=== PATIENT | male | born 1955 | race Hispanic/Latino ===

== ENCOUNTER 2020-10-13 16:50 | Inpatient (IN) | payer MEDICAID ==
--- NOTE | 2020-10-13 17:18 | Consultation ---
History of Present Illness - Reason for Consult Consult date: 10/06/20 - History of Present Illness [facility] Consult Note # Demographics Consult Type: Acute Stroke Level 2 (4.5-24 hrs) Patient Location: Emergency Room First Name: Keith Last Name: Mariana Date of : 1955 Age: 65 Gender: Male Time of Initial Page (): 10/13/2020, 16:57 Time of Return Call (): 10/13/2020, 16:57 # HPI History: 65yo man who was LKN at 9PM last night. He has right sided weakness as well as speech issue complaints. He had some numbness also last night, but today, he has more weakness than anything. # Scores Time of exam and NIHSS (): 10/13/2020, 17:16 Level of Consciousness 1a: [0] = Alert; keenly responsive LOC Questions 1b: [0] = Answers both questions correctly LOC Commands 1c: [0] = Performs both tasks correctly Best Gaze 2: [0] = Normal Visual 3: [0] = No visual loss Facial Palsy 4: [1] = Minor paralysis Motor Arm Left 5a: [0] = No drift Motor Arm Right 5b: [4] = No movement Motor Leg Left 6a: [0] = No drift Motor Leg Right 6b: [0] = No drift Limb Ataxia 7: [0] = Absent Sensory 8: [0] = Normal Best Language 9: [0] = No aphasia Dysarthria 10: [1] = [id number] dysarthria Extinction and Inattention 11: [0] = No abnormality NIHSS Total: 6 # ROS Pulmonary: shortness of breath Cardiovascular: no chest pain # Data Time Head CT personally read by me (): 10/13/2020, 17:[address]: no bleed, riight thalamic subacute appearing stroke # Assessment Impression: Ischemic Stroke (Acute) # Plan Thrombolytic/Intervention: NOT IV Thrombolytic or IA Intervention Thrombolytic Exclusion: > 4.5 hours Intraarterial Exclusion: clinically consistent with small vessel disease Target Blood Pressure: SBP < 220 Labs: ESR, lipid panel Imaging: (urgency: STAT in ED): CT Angiogram Head and CT Angiogram Neck Imaging: (urgency: routine admission): MRI Brain without contrast Diagnostic Test: echo with bubble study Therapy/Evaluation: NPO until swallow evaluation, PT/OT evaluation, speech/swallow consultation Medication: aspirin 81 mg daily DVT Prophylaxis: SCD, chemical DVT prophylaxis Other: permissive hypertension, telemetry monitoring, I have discussed my recommendations with the referring provider Disposition: admit Medications and Allergies Allergies Allergy/AdvReac Type Severity Reaction Status Date / Time No Known Allergies Allergy Verified 12/11/13 08:57 Home Medications Medication Instructions Recorded Confirmed Last Taken Type ALPRAZolam [Xanax] 1 mg PO DAILY 09/19/13 09/19/13 09/18/13 History Tiotropium [place] [Spiriva] 1 cap IH DAILY 09/19/13 09/19/13 09/18/13 History Vardenafil HCl [Levitra] 20 mg PO QDAY PRN 09/19/13 09/19/13 08/28/13 History risperiDONE [RisperDAL] 0.25 mg PO BID 09/19/13 09/19/13 09/18/13 History Albuterol Sulfate [Ventolin HFA] 2 puff IH Q4H PRN #1 hfa.aer.ad 12/11/13 Unknown Rx Azithromycin [Zithromax Z-DIANA] 250 mg PO DAILY #6 tablet 12/11/13 Unknown Rx Prednisone [Prednisone 10 mg 10 mg PO .TAPER #1 tab.ds.pk 12/11/13 Unknown Rx (6-Day Pack, 21 Tabs)] traMADoL [Ultram 50 MG tab] 50 mg PO Q6HR PRN #20 tablet 12/11/13 Unknown Rx
[2020-10-13 17:26] LABS: Basophils % (Auto) 0.6 % (0.0-1.8); Eosinophils # (Auto) 0.1 K/mm3 (0.0-0.4); Eosinophils % (Auto) 1.7 % (0.0-4.3); Hematocrit 41.2 % (35.5-45.6); Hemoglobin 13.9 gm/dl (11.8-15.2); Lymphocytes % (Auto) 16.4 % (13.4-35.0); Mean Corpuscular HGB Conc 34 % (32-34); Mean Corpuscular Volume 91 fl (84-94); Monocytes # (Auto) 0.5 K/mm3 (0.0-0.8); Monocytes % (Auto) 8.5 % (0.0-7.3); Platelet Count 201 K/mm3 (140-440); Red Blood Count 4.54 M/mm3 (3.65-5.03); Red Cell Distribution Width 14.7 % (13.2-15.2)
--- NOTE | 2020-10-13 17:28 | Emergency Department Report ---
ED Neuro Deficit HPI - General Stated Complaint: POSSIBLE STROKE Time Seen by Provider: 10/13/20 16:51 Source: patient, EMS Limitations: No Limitations - History of Present Illness Initial Comments: 65-year-old male, history of COPD, mesothelioma, presents to ED with stroke symptoms. Last known well time was 9 PM. Patient has numbness and weakness in the right arm and leg. He reports mild headache and some slurred speech. Patient reports tobacco use. Has not received his COVID-19 vaccine yet. -: Last night Last Observed Normal: 21:00 Location: speech, right arm, right leg Presenting Symptoms: Present: Weak/Paralyzed One Side, Unable to Speak Clearly Place: home Severity: moderate Quality: weak, tingling Improves With: none Worsens With: none On Anticoagulants: No Associated Symptoms: headaches, shortness of breath. denies: chest pain, fever/chills, nausea/vomiting - Related Data Home Medications: Home Medications Medication Instructions Recorded Confirmed Last Taken ALPRAZolam [Xanax] 1 mg PO DAILY 09/19/13 09/19/13 09/18/13 Tiotropium [place] [Spiriva] 1 cap IH DAILY 09/19/13 09/19/13 09/18/13 Vardenafil HCl [Levitra] 20 mg PO QDAY PRN 09/19/13 09/19/13 08/28/13 risperiDONE [RisperDAL] 0.25 mg PO BID 09/19/13 09/19/13 09/18/13 Previous Rx's Medication Instructions Recorded Last Taken Type Albuterol Sulfate [Ventolin HFA] 2 puff IH Q4H PRN #1 hfa.aer.ad 12/11/13 Unknown Rx Azithromycin [Zithromax Z-DIANA] 250 mg PO DAILY #6 tablet 12/11/13 Unknown Rx Prednisone [Prednisone 10 mg 10 mg PO .TAPER #1 tab.ds.pk 12/11/13 Unknown Rx (6-Day Pack, 21 Tabs)] traMADoL [Ultram 50 MG tab] 50 mg PO Q6HR PRN #20 tablet 12/11/13 Unknown Rx Allergies/Adverse Reactions: Allergies Allergy/AdvReac Type Severity Reaction Status Date / Time No Known Allergies Allergy Verified 10/13/20 17:31 ED Review of Systems ROS: Stated complaint: POSSIBLE STROKE Other details as noted in HPI Comment: All other systems reviewed and negative Constitutional: denies: chills, fever Respiratory: shortness of breath Cardiovascular: denies: chest pain Gastrointestinal: denies: nausea, vomiting Neurological: headache, weakness, numbness ED Past Medical Hx - Past Medical History Hx Hypertension: No Hx Heart Attack/AMI: No Hx GERD: Yes Hx Liver Disease: No Hx Renal Disease: No Hx Sickle Cell Disease: No Hx Arthritis: Yes (BOTH HANDS) Hx Seizures: No Hx Asthma: No Hx COPD: Yes Additional medical history: mesothelioma - Surgical History Hx Pacemaker: No Hx Internal Defibrillator: No Additional Surgical History: testicular surgery a couple of weeks ago to remove 2 cysts. stomach surgery - Social History Smoking Status: Current Every Day Smoker Substance Use Type: None - Medications Home Medications: Home Medications Medication Instructions Recorded Confirmed Last Taken Type ALPRAZolam [Xanax] 1 mg PO DAILY 09/19/13 09/19/13 09/18/13 History Tiotropium [place] [Spiriva] 1 cap IH DAILY 09/19/13 09/19/13 09/18/13 History Vardenafil HCl [Levitra] 20 mg PO QDAY PRN 09/19/13 09/19/13 08/28/13 History risperiDONE [RisperDAL] 0.25 mg PO BID 09/19/13 09/19/13 09/18/13 History Albuterol Sulfate [Ventolin HFA] 2 puff IH Q4H PRN #1 hfa.aer.ad 12/11/13 Unknown Rx Azithromycin [Zithromax Z-DIANA] 250 mg PO DAILY #6 tablet 12/11/13 Unknown Rx Prednisone [Prednisone 10 mg 10 mg PO .TAPER #1 tab.ds.pk 12/11/13 Unknown Rx (6-Day Pack, 21 Tabs)] traMADoL [Ultram 50 MG tab] 50 mg PO Q6HR PRN #20 tablet 12/11/13 Unknown Rx ED Neuro Physical Exam - General General appearance: alert, in no apparent distress Suspected Stroke: Yes - Head Head exam: Present: atraumatic, normocephalic - Eye Eye exam: Present: normal appearance, PERRL, EOMI - ENT ENT exam: Present: mucous membranes moist - Neck Neck exam: Present: normal inspection - Respiratory Respiratory exam: Present: normal lung sounds bilaterally. Absent: respiratory distress - Cardiovascular Cardiovascular Exam: Present: regular rate, normal rhythm - GI/Abdominal GI/Abdominal exam: Present: soft. Absent: distended, tenderness - Extremities Exam Extremities exam: Present: normal inspection - Neurological Exam Neurological exam: Present: alert, oriented X3 - NIHSS Assessment Interval: Baseline 1a. Level of Consciousness: alert/keenly responsive 1b. LOC Questions: answers both correctly 1c. LOC Commands: performs tasks correctly 2. Best Gaze: normal 3. Visual: no visual loss 4. Facial Palsy: minor paralysis 5b. Motor Arm Right: some gravity effort 5a. Motor Arm Left: no drift 6a. Motor Leg Left: no drift 6b. Motor Leg Right: drift 7. Limb Ataxia: absent 8. Sensory: mild/moderate sensory loss 9. Best Language: no aphasia 10. Dysarthria: mild/moderate dysarthria 11. Extinction/Inattention: no abnormality Total Score: 6 Stroke Severity: Moderate Stroke - Psychiatric Psychiatric exam: Present: normal affect, normal mood - Skin Skin exam: Present: warm, dry, intact, normal color. Absent: rash ED Course Vital Signs 10/13/20 10/13/20 10/13/20 17:00 17:21 17:30 Temperature 98.1 F Pulse Rate 62 Respiratory 18 Rate Blood Pressure 165/106 O2 Sat by Pulse 100 Oximetry 10/13/20 10/13/20 10/13/20 17:46 18:00 18:16 Temperature Pulse Rate 58 L 56 L 61 Respiratory 16 15 16 Rate Blood Pressure 165/92 163/88 156/95 O2 Sat by Pulse 99 98 98 Oximetry 10/13/20 10/13/20 10/13/20 18:30 18:46 19:00 Temperature Pulse Rate 120 H 74 57 L Respiratory 28 H 19 16 Rate Blood Pressure 148/88 175/98 167/103 O2 Sat by Pulse 95 98 98 Oximetry 10/13/20 10/13/20 10/13/20 19:16 19:25 20:00 Temperature 97.8 F Pulse Rate 60 Respiratory 13 16 Rate Blood Pressure 152/92 155/90 O2 Sat by Pulse 98 98 Oximetry - Lab Data Result diagrams: 10/13/20 17:11 10/13/20 17:11 Lab Results 10/13/20 10/13/20 10/13/20 Range/Units 17:11 17:11 17:11 WBC 6.3 (4.5-11.0) K/mm3 RBC 4.54 (3.65-5.03) M/mm3 Hgb 13.9 (11.8-15.2) gm/dl Hct 41.2 (35.5-45.6) % MCV 91 (84-94) fl MCH 31 (28-32) pg MCHC 34 (32-34) % RDW 14.7 (13.2-15.2) % Plt Count 201 (140-440) K/mm3 Lymph % (Auto) 16.4 (13.4-35.0) % [place] % (Auto) 8.5 H (0.0-7.3) % Eos % (Auto) 1.7 (0.0-4.3) % Baso % (Auto) 0.6 (0.0-1.8) % Lymph # (Auto) 1.0 L (1.2-5.4) K/mm3 [place] # (Auto) 0.5 (0.0-0.8) K/mm3 Eos # (Auto) 0.1 (0.0-0.4) K/mm3 Baso # (Auto) 0.0 (0.0-0.1) K/mm3 Seg Neutrophils % 72.8 H (40.0-70.0) % Seg Neutrophils # 4.6 (1.8-7.7) K/mm3 PT 13.9 (12.2-14.9) Sec. INR 1.08 (0.87-1.13) APTT 33.3 (24.2-36.6) Sec. Thrombin Time 17.2 (15.1-19.6) Sec. Sodium 132 L (137-145) mmol/L Potassium 3.6 (3.6-5.0) mmol/L Chloride 99.4 (98-107) mmol/L Carbon Dioxide 24 (22-30) mmol/L Anion Gap 12 mmol/L BUN 16 (9-20) mg/dL Creatinine 0.9 (0.8-1.3) mg/dL Estimated GFR > 60 ml/min BUN/Creatinine Ratio 18 % Glucose 103 H (75-100) mg/dL POC Glucose (70-105) mg/dL Calcium 8.4 (8.4-10.2) mg/dL Total Bilirubin 0.20 (0.1-1.2) mg/dL AST 12 (5-40) units/L ALT 12 (7-56) units/L Alkaline Phosphatase 61 (35-129) units/L Total Creatine Kinase 68 (55-170) units/L CK-MB (CK-2) 3.1 (0.0-4.0) ng/mL CK-MB (CK-2) Rel Index 4.5 H (0-4) Troponin T < 0.010 (0.00-0.029) ng/mL Total Protein 5.5 L (6.3-8.2) g/dL Albumin 3.5 L (3.9-5) g/dL Albumin/Globulin Ratio 1.8 % 10/13/20 Range/Units 17:35 WBC (4.5-11.0) K/mm3 RBC (3.65-5.03) M/mm3 Hgb (11.8-15.2) gm/dl Hct (35.5-45.6) % MCV (84-94) fl MCH (28-32) pg MCHC (32-34) % RDW (13.2-15.2) % Plt Count (140-440) K/mm3 Lymph % (Auto) (13.4-35.0) % [place] % (Auto) (0.0-7.3) % Eos % (Auto) (0.0-4.3) % Baso % (Auto) (0.0-1.8) % Lymph # (Auto) (1.2-5.4) K/mm3 [place] # (Auto) (0.0-0.8) K/mm3 Eos # (Auto) (0.0-0.4) K/mm3 Baso # (Auto) (0.0-0.1) K/mm3 Seg Neutrophils % (40.0-70.0) % Seg Neutrophils # (1.8-7.7) K/mm3 PT (12.2-14.9) Sec. INR (0.87-1.13) APTT (24.2-36.6) Sec. Thrombin Time (15.1-19.6) Sec. Sodium (137-145) mmol/L Potassium (3.6-5.0) mmol/L Chloride (98-107) mmol/L Carbon Dioxide (22-30) mmol/L Anion Gap mmol/L BUN (9-20) mg/dL Creatinine (0.8-1.3) mg/dL Estimated GFR ml/min BUN/Creatinine Ratio % Glucose (75-100) mg/dL POC Glucose 67 L (70-105) mg/dL Calcium (8.4-10.2) mg/dL Total Bilirubin (0.1-1.2) mg/dL AST (5-40) units/L ALT (7-56) units/L Alkaline Phosphatase (35-129) units/L Total Creatine Kinase (55-170) units/L CK-MB (CK-2) (0.0-4.0) ng/mL CK-MB (CK-2) Rel Index (0-4) Troponin T (0.00-0.029) ng/mL Total Protein (6.3-8.2) g/dL Albumin (3.9-5) g/dL Albumin/Globulin Ratio % - EKG Data -: EKG Interpreted by Mo EKG shows normal: sinus rhythm, QRS complexes, ST-T waves Rate: bradycardia (rate 58) Interpretation: no acute changes - Radiology Data Radiology results: report reviewed, image reviewed - Medical Decision Making Patient with right-sided numbness and weakness since last night. Patient outside window for TPA. CT head is unremarkable. CTA does not show any evidence of large vessel occlusion. Patient has been seen and evaluated by teleneurologist. He will be admitted by hospitalist, Dr. Kellogg, for further management. - Differential Diagnosis CVA - Thrombolytic Inclusion/Exclusion Thrombolytic Exclusion Criteria: Symptom Onset > 3 Hours Critical care attestation.: If time is entered above; I have spent that time in minutes in the direct care of this critically ill patient, excluding procedure time. ED Disposition Clinical Impression: CVA (cerebral vascular accident) Disposition: OP ADMIT IP TO THIS HOSP Is pt being admited?: Yes Condition: Stable Time of Disposition: 18:00
[2020-10-13 17:29] LABS: INR 1.08 (0.87-1.13)
[2020-10-13 17:30] LABS: Partial Thromboplastin Time 33.3 Sec. (24.2-36.6); Thrombin Time 17.2 Sec. (15.1-19.6)
--- NOTE | 2020-10-13 17:31 | Cat Scan Report ---
CT head/brain wo con INDICATION: Stroke symptoms. TECHNIQUE: All CT scans at this location are performed using CT dose reduction for ALARA by means of automated e xposure control. COMPARISON: None available. FINDINGS: There is no evidence of hemorrhage, hydrocephalus, brain edema, or mass effect/mass lesion. There is a chronic appearing lacunar infarct in the right thalamus. Ventricular and cisternal size otherwise a ppears normal for age. The included paranasal sinuses and mastoid air cells are clear. The orbits appear unremarkable. IMPRESSION: 1. No acute intracranial abnormality. Findings discussed with Dr. Gonzalez at 4:25 pm central time on 10/13/20. Signer Name: Abraham Jamison MD Signed: 10/13/2020 5:26 PM Workstation Name: [id number]
--- NOTE | 2020-10-13 17:36 | Cat Scan Report ---
CTA HEAD AND NECK WITH CONTRAST HISTORY: Stroke symptoms COMPARISON: None. TECHNIQUE: All CT scans at this location are performed using CT dose reduction for ALARA by means of automated exposure control.. 3-D/MIP reformats postprocessed. Percentage stenosis is determined by d irect quantitative measurements of diseased internal carotid artery diameter compared with normal dis frances internal carotid artery reference segments or by criteria similar to NASCET where applicable. FINDINGS: CTA HEAD: Intracranial vertebral arteries: No significant abnormality. Basilar artery: No significant abnormality. Posterior cerebral arteries: No significant abnormality. Intracranial internal carotid arteries: Trace atherosclerotic plaque in the supraclinoid ICAs without stenosis. Anterior cerebral arteries: No significant abnormality. Middle cerebral arteries: No significant abnormality. Dural venous sinuses:Not optimally opacified. No significant abnormality. CTA NECK: Aortic arch: No significant abnormality. Cervical vertebral arteries: No significant abnormality. Common carotid arteries: No significant abnormality. Cervical internal carotid arteries: There is mild atherosclerotic plaque in both carotid bulbs withou t significant stenosis. Additional findings: Severe upper lobe bullous emphysema. There is mild degenerative disc disease at C5-6 and C6-7 in the cervical spine. IMPRESSION: 1. No flow-limiting stenosis or large vessel occlusion in the neck or intracranial arteries. Signer Name: Abraham Jamison MD Signed: 10/13/2020 5:32 PM Workstation Name: [id number]
[2020-10-13 17:45] LABS: Creatine Kinase MB 3.1 ng/mL (0.0-4.0)
[2020-10-13 17:47] LABS: Alanine Aminotransferase 12 units/L (7-56); Albumin 3.5 g/dL (3.9-5); BUN/Creatinine Ratio 18; Blood Urea Nitrogen 16 mg/dL (9-20); Calcium 8.4 mg/dL (8.4-10.2); Hemolysis Index 12
--- NOTE | 2020-10-13 18:00 | History and Physical Report ---
History of Present Illness Chief complaint: I feel weak on the right side History of present illness: 65 YO Male jeff COPD, Mesothelioma, GERD, OA, Nicotine Dependence presents to ED for evaluation. Pt reports "I feel weak on my right side". Pt states that he experienced acute onset of right-sided weakness which was discovered shortly after awakening from sleep this a.m. Patient was in his usual state of health at bedtime which was around 2100 hrs. EMS was notified and upon arrival the patient was found to be in distress with a neurologic deficit. A code stroke was called and the patient was transported to [facility] for further care and evaluation of the aforementioned symptoms. The patient was seen and evaluated in the emergency department. All lab and imaging studies reviewed. Patient was found to have a neurologic deficit which consisted of slurred speech and right arm and leg weakness. The aforementioned symptoms are consistent with CVA. The patient was initiated on CVA protocol and placed in observation status and admitted to telemetry. Patient denies fever, chills, chest pain, palpitation, productive cough, skin rash, recent ill contacts, or known exposure to COVID-19. No prior admission for review. All medication listed at time of admission has been reconciled. Advanced care planning conducted in ED. Teleneurology consulted in ED. Past History Past Medical History: COPD, GERD, hypertension Past Surgical History: bowel surgery, Other (Testicular surgery) Social history: smoking Medications and Allergies Allergies Allergy/AdvReac Type Severity Reaction Status Date / Time No Known Allergies Allergy Verified 10/13/20 17:31 Home Medications Medication Instructions Recorded Confirmed Last Taken Type ALPRAZolam [Xanax] 1 mg PO DAILY 09/19/13 09/19/13 09/18/13 History Tiotropium [place] [Spiriva] 1 cap IH DAILY 09/19/13 09/19/13 09/18/13 History Vardenafil HCl [Levitra] 20 mg PO QDAY PRN 09/19/13 09/19/13 08/28/13 History risperiDONE [RisperDAL] 0.25 mg PO BID 09/19/13 09/19/13 09/18/13 History Albuterol Sulfate [Ventolin HFA] 2 puff IH Q4H PRN #1 hfa.aer.ad 12/11/13 Unknown Rx Azithromycin [Zithromax Z-DIANA] 250 mg PO DAILY #6 tablet 12/11/13 Unknown Rx Prednisone [Prednisone 10 mg 10 mg PO .TAPER #1 tab.ds.pk 12/11/13 Unknown Rx (6-Day Pack, 21 Tabs)] traMADoL [Ultram 50 MG tab] 50 mg PO Q6HR PRN #20 tablet 12/11/13 Unknown Rx Review of Systems Constitutional: no weight loss, no weight gain, no fever, no sweats Ears, nose, mouth and throat: no ear pain, no ear discharge, no tinnitis, no decreased hearing, no nose pain, no nasal congestion Cardiovascular: no chest pain, no orthopnea, no palpitations, no edema Respiratory: no cough, no cough with sputum Gastrointestinal: no abdominal pain, no nausea, no vomiting, no diarrhea Genitourinary Male: no hematuria, no flank pain, no discharge, no urinary frequency, no urinary hesitancy Rectal: no pain, no incontinence Musculoskeletal: no neck stiffness, no neck pain, no arm numbness/tingling, no low back pain, no shooting leg pain Integumentary: no rash, no pruritis, no redness, no sores, no wounds Neurological: weakness, ataxia, lack of coordination, change in speech, gait dysfunction, motor disturbance, no tingling, no syncope Psychiatric: no anxiety, no memory loss, no change in sleep habits, no sleep disturbances, no insomnia, no change in appetite, no change in libido Endocrine: no cold intolerance, no heat intolerance, no nocturia Hematologic/Lymphatic: no easy bruising, no easy bleeding, no lymphadenopathy, no lymphedema Allergic/Immunologic: no urticaria, no wheezing, no anaphylaxis Exam - Constitutional Vitals: Temp Pulse Resp BP Pulse Ox 98.1 F 62 18 165/106 100 10/13/20 17:00 10/13/20 17:30 10/13/20 17:30 10/13/20 17:21 10/13/20 17:30 General appearance: Present: mild distress - EENT Eyes: Present: PERRL ENT: hearing intact, clear oral mucosa - Neck Neck: Present: supple, normal ROM - Respiratory Respiratory effort: normal Respiratory: bilateral: CTA - Cardiovascular Heart Sounds: Present: S1 & S2. Absent: rub, click - Extremities Extremities: pulses symmetrical, No edema Peripheral Pulses: within normal limits - Abdominal General gastrointestinal: Present: soft, non-tender, non-distended, normal bowel sounds Male genitourinary: Present: normal - Integumentary Integumentary: Present: clear, warm, dry - Musculoskeletal Musculoskeletal: right sided weakness - Psychiatric Psychiatric: appropriate mood/affect, intact judgment & insight - Neurologic Neurologic: CNII-XII intact, focal deficits, no moves all extremities, no gait normal HEART Score - HEART Score Troponin: Troponin T < 0.010 ng/mL (0.00-0.029) 10/13/20 17:11 Results - Labs CBC & Chem 7: 10/13/20 17:11 10/13/20 17:11 Labs: Abnormal lab results 10/13/20 10/13/20 10/13/20 Range/Units 17:11 17:11 17:35 [place] % (Auto) 8.5 H (0.0-7.3) % Lymph # (Auto) 1.0 L (1.2-5.4) K/mm3 Seg Neutrophils % 72.8 H (40.0-70.0) % Sodium 132 L (137-145) mmol/L Glucose 103 H (75-100) mg/dL POC Glucose 67 L (70-105) mg/dL CK-MB (CK-2) Rel Index 4.5 H (0-4) Total Protein 5.5 L (6.3-8.2) g/dL Albumin 3.5 L (3.9-5) g/dL Assessment and Plan - Patient Problems (1) CVA (cerebral vascular accident) Current Visit: No Status: Acute Plan to address problem: CVA protocol: CT scan brain, antiplatelet therapy, physical therapy consulted, Occupational Therapy consulted, speech therapy consulted, lipid panel, seizure precautions, neuro check, aspiration precautions, fall protocol, carotid Doppler, echocardiogram. (2) HTN (hypertension) Current Visit: Yes Status: Acute Qualifiers: Hypertension type: essential hypertension Qualified Code(s): I10 - Essential (primary) hypertension Plan to address problem: Monitor blood pressure every shift, continue medical management (3) COPD (chronic obstructive pulmonary disease) Current Visit: Yes Status: Acute Plan to address problem: Supplemental oxygen, pulse oximetry, nebulizer therapy, (4) GERD (gastroesophageal reflux disease) Current Visit: Yes Status: Acute Plan to address problem: PPI therapy, supportive care (5) Nicotine dependence Current Visit: Yes Status: Acute Plan to address problem: Smoking cessation counseling, behavior change counseling, +15 minutes. (6) DVT prophylaxis Current Visit: Yes Status: Acute Plan to address problem: SCD to BLE while in bed, patient is ambulatory (7) Advance care planning Current Visit: Yes Status: Acute Plan to address problem: Disease education conducted, care plan discussed, diagnoses discussed, patient is full code, patient knowledges understanding and agreement with care plan, +30 minutes
[2020-10-13] MEDS ORDERED: MAGNESIUM HYDROXIDE (MOM) ORAL LIQD UDC PO PRN (18:01)
[2020-10-13] MEDS ORDERED: ONDANSETRON 4 MG/2 ML INJ IV PRN (18:01)
[2020-10-13] MEDS ORDERED: METOCLOPRAMIDE 10 MG TAB PO PRN (18:01)
[2020-10-13] MEDS ORDERED: ACETAMINOPHEN 325 MG TAB PO PRN (18:01)
[2020-10-13] MEDS ORDERED: PROMETHAZINE 25 MG RECT SUPP PR PRN (18:01)
[2020-10-13] MEDS ORDERED: traMADol 50 MG TAB PO PRN (18:21)
[2020-10-13] MEDS: risperiDONE 0.25 MG TAB PO SCH (22:50)
[2020-10-14 06:13] LABS: Chol/HDL Ratio 2.86 %
--- NOTE | 2020-10-14 07:47 | Progress Note ---
Assessment and Plan Assessment and plan: (1) CVA (cerebral vascular accident) Current Visit: No Status: Acute Plan to address problem: CVA protocol: CT scan brain, antiplatelet therapy, physical therapy consulted, Occupational Therapy consulted, speech therapy consulted, lipid panel, seizure precautions, neuro check, aspiration precautions, fall protocol, carotid Doppler, echocardiogram. (2) HTN (hypertension) Current Visit: Yes Status: Acute Qualifiers: Hypertension type: essential hypertension Qualified Code(s): I10 - Essential (primary) hypertension Plan to address problem: Monitor blood pressure every shift, continue medical management (3) COPD (chronic obstructive pulmonary disease) Current Visit: Yes Status: Acute Plan to address problem: Supplemental oxygen, pulse oximetry, nebulizer therapy, (4) GERD (gastroesophageal reflux disease) Current Visit: Yes Status: Acute Plan to address problem: PPI therapy, supportive care (5) Nicotine dependence Current Visit: Yes Status: Acute Plan to address problem: Smoking cessation counseling, behavior change counseling, +15 minutes. (6) DVT prophylaxis Current Visit: Yes Status: Acute Plan to address problem: SCD to BLE while in bed, patient is ambulatory (7) Advance care planning Current Visit: Yes Status: Acute Plan to address problem: Disease education conducted, care plan discussed, diagnoses discussed, patient is full code, patient knowledges understanding and agreement with care plan, +30 minutes 10/14/2020 -Patient has right-sided hemiplegia with slurred speech. -I placed a consult for in-house neurology -CTA head and neck, did not show significant stenosis. CT head is normal. MRI is pending. Carotid Doppler and echo pending. PT OT evaluation -Continue inpatient care -Given his right-sided hemiplegia patient qualify for inpatient stay History Interval history: Patient was seen and evaluated this morning Patient has slurred speech, right-sided hemiplegia Hospitalist Physical - Physical exam Narrative exam: Not in cardiopulmonary distress. The patient appeared well nourished and normally developed. Vital signs as documented. Head exam is unremarkable. No scleral icterus . Neck is without jugular venous distension, thyromegaly, or carotid bruits. Lungs are clear to auscultation. Cardiac exam reveals regular rate and Rhythm. Abdominal exam reveals normal bowel sounds, nontender, no organomegaly. Extremities are nonedematous and both femoral and pedal pulses are normal. SASH MAKER: Alert and oriented 3. Right-sided hemiplegia. Slurred speech. - Constitutional Vitals: Temp Pulse Resp BP Pulse Ox 98.3 F 83 18 129/78 97 10/14/20 03:31 10/14/20 03:31 10/14/20 03:10/14/20 03:10/14/20 03:31 General appearance: Present: mild distress HEART Score - HEART Score Troponin: Troponin T < 0.010 ng/mL (0.00-0.029) 10/13/20 17:11 Results - Labs CBC & Chem 7: 10/13/20 17:11 10/13/20 17:11 Labs: Laboratory Last Values WBC 6.3 K/mm3 (4.5-11.0) 10/13/20 17:11 RBC 4.54 M/mm3 (3.65-5.03) 10/13/20 17:11 Hgb 13.9 gm/dl (11.8-15.2) 10/13/20 17:11 Hct 41.2 % (35.5-45.6) 10/13/20 17:11 MCV 91 fl (84-94) 10/13/20 17:11 MCH 31 pg (28-32) 10/13/20 17:11 MCHC 34 % (32-34) 10/13/20 17:11 RDW 14.7 % (13.2-15.2) 10/13/20 17:11 Plt Count 201 K/mm3 (140-440) 10/13/20 17:11 Lymph % (Auto) 16.4 % (13.4-35.0) 10/13/20 17:11 [place] % (Auto) 8.5 % (0.0-7.3) H 10/13/20 17:11 Eos % (Auto) 1.7 % (0.0-4.3) 10/13/20 17:11 Baso % (Auto) 0.6 % (0.0-1.8) 10/13/20 17:11 Lymph # (Auto) 1.0 K/mm3 (1.2-5.4) L 10/13/20 17:11 [place] # (Auto) 0.5 K/mm3 (0.0-0.8) 10/13/20 17:11 Eos # (Auto) 0.1 K/mm3 (0.0-0.4) 10/13/20 17:11 Baso # (Auto) 0.0 K/mm3 (0.0-0.1) 10/13/20 17:11 Seg Neutrophils % 72.8 % (40.0-70.0) H 10/13/20 17:11 Seg Neutrophils # 4.6 K/mm3 (1.8-7.7) 10/13/20 17:11 PT 13.9 Sec. (12.2-14.9) 10/13/20 17:11 INR 1.08 (0.87-1.13) 10/13/20 17:11 APTT 33.3 Sec. (24.2-36.6) 10/13/20 17:11 Thrombin Time 17.2 Sec. (15.1-19.6) 10/13/20 17:11 Sodium 132 mmol/L (137-145) L 10/13/20 17:11 Potassium 3.6 mmol/L (3.6-5.0) 10/13/20 17:11 Chloride 99.4 mmol/L (98-107) 10/13/20 17:11 Carbon Dioxide 24 mmol/L (22-30) 10/13/20 17:11 Anion Gap 12 mmol/L 10/13/20 17:11 BUN 16 mg/dL (9-20) 10/13/20 17:11 Creatinine 0.9 mg/dL (0.8-1.3) 10/13/20 17:11 Estimated GFR > 60 ml/min 10/13/20 17:11 BUN/Creatinine Ratio 18 % 10/13/20 17:11 Glucose 103 mg/dL (75-100) H 10/13/20 17:11 POC Glucose 67 mg/dL (70-105) L 10/13/20 17:35 Calcium 8.4 mg/dL (8.4-10.2) 10/13/20 17:11 Total Bilirubin 0.20 mg/dL (0.1-1.2) 10/13/20 17:11 AST 12 units/L (5-40) 10/13/20 17:11 ALT 12 units/L (7-56) 10/13/20 17:11 Alkaline Phosphatase 61 units/L (35-129) 10/13/20 17:11 Total Creatine Kinase 68 units/L (55-170) 10/13/20 17:11 CK-MB (CK-2) 3.1 ng/mL (0.0-4.0) 10/13/20 17:11 CK-MB (CK-2) Rel Index 4.5 (0-4) H 10/13/20 17:11 Troponin T < 0.010 ng/mL (0.00-0.029) 10/13/20 17:11 Total Protein 5.5 g/dL (6.3-8.2) L 10/13/20 17:11 Albumin 3.5 g/dL (3.9-5) L 10/13/20 17:11 Albumin/Globulin Ratio 1.8 % 10/13/20 17:11 Triglycerides 78 mg/dL (2-149) 10/14/20 04:15 Cholesterol 149 mg/dL (50-199) 10/14/20 04:15 LDL Cholesterol Direct 95 mg/dL (50-130) 10/14/20 04:15 HDL Cholesterol 52 mg/dL (40-59) 10/14/20 04:15 Cholesterol/HDL Ratio 2.86 % 10/14/20 04:15 [place]/IV: Voiding Method Urinal Active Medications - Current Medications Current Medications: Generic Name Dose Route Start Last Admin Trade Name Freq PRN Reason Stop Dose Admin Acetaminophen 650 mg 10/13/20 18:01 Acetaminophen 325 Mg Tab PO Q4H PRN Pain, Mild (1-3) Alprazolam 1 mg 10/14/20 10:00 Alprazolam 1 Mg Tab PO DAILY CARLI Aspirin 325 mg 10/14/20 10:00 Aspirin 325 Mg Tab PO QDAY CARLI Atorvastatin Calcium 40 mg 10/13/20 22:00 10/13/20 22:50 Atorvastatin 40 Mg Tab PO 40 mg QHS CARLI Administration Bisacodyl 10 mg 10/13/20 18:01 Bisacodyl 10 Mg Rect Supp [place] QDAY PRN Constipation Magnesium Hydroxide 30 ml 10/13/20 18:01 Magnesium Hydroxide (Mom) Oral Liqd Udc PO Q4H PRN Constipation Metoclopramide HCl 10 mg 10/13/20 18:01 Metoclopramide 10 Mg Tab PO Q6H PRN Nausea And Vomiting Ondansetron HCl 4 mg 10/13/20 18:01 Ondansetron 4 Mg/2 Ml Inj IV Q8H PRN Nausea And Vomiting Promethazine HCl 25 mg 10/13/20 18:01 Promethazine 25 Mg Rect Supp [place] Q6H PRN Nausea And Vomiting Risperidone 0.25 mg 10/13/20 22:00 10/13/20 22:50 Risperidone 0.25 Mg Tab PO 0.25 mg BID CARLI Administration Sodium Chloride 10 ml 10/13/20 18:01 10/13/20 23:01 Sodium Chloride 0.9% 10 Ml Flush Syringe IV 10 ml PRN PRN Administration LINE FLUSH Tiotropium [place] 1 puff 10/14/20 10:00 Tiotropium 18 Mcg Cap Inhalation IH Q24HR CARLI Tramadol HCl 50 mg 10/13/20 18:21 Tramadol 50 Mg Tab PO Q6H PRN Pain, Moderate (4-6)
[2020-10-14] MEDS: risperiDONE 0.25 MG TAB PO SCH ×2 (09:32→21:47)
[2020-10-14] MEDS: ASPIRIN 325 MG TAB PO SCH (09:32)
[2020-10-14] MEDS: TIOTROPIUM 18 MCG CAP INHALATION IH SCH (09:36)
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
[2020-10-14] MEDS: ALPRAZolam 1 MG TAB PO SCH (11:21)
--- NOTE | 2020-10-14 15:45 | Magnetic Resonance Report ---
NONENHANCED MR SCAN OF THE BRAIN: INDICATION / CLINICAL INFORMATION: Right-sided weakness TECHNIQUE: Multiplanar, multisequence MR images of the brain obtained. COMPARISON: CT scan of the head from 01/13/2021 FINDINGS: BRAIN / INTRACRANIAL CONTENTS: Subacute ischemia straddling the left wilson radiata and left centrum semiovale; this ischemic lesion is more than 12 hours old (increased T2 signal) but less than 5 days old (low ADC); no hemorrhagic changes; chronic lacune in the right thalamus and in the right side of konrad; cerebellar hemispheres normal; scattered periventricular white matter lesions due to chronic sm all vessel disease CRANIOCERVICAL JUNCTION: No significant abnormality. VASCULAR FLOW-VOIDS: No significant abnormality. ORBITS: No significant abnormality of visualized orbits. SINUSES / MASTOIDS: No significant abnormality of visualized sinuses and mastoid air cells. ADDITIONAL FINDINGS: None. IMPRESSION: Nonhemorrhagic subacute ischemia straddling the left wilson radiata and left centrum semiovale Signer Name: Aftab Chery MD Signed: 10/14/2020 3:40 PM Workstation Name: [id number]
--- NOTE | 2020-10-14 20:47 | Vascular Lab Report ---
DUPLEX DOPPLER ULTRASOUND CAROTID, BILATERAL INDICATION / CLINICAL INFORMATION: stroke. COMPARISON: None available. FINDINGS: RIGHT CAROTID: - PLAQUE ESTIMATE (%): < 50% - CCA velocity: 110 cm/sec. - ICA peak systolic velocity: 82 cm/sec. - ICA/CCA PSV Ratio: Rest into Right Vertebral Artery: Antegrade flow. LEFT CAROTID: - PLAQUE ESTIMATE: < 50% - CCA velocity: 186 cm/sec. - ICA peak systolic velocity: 64 cm/sec. - ICA/CCA PSV Ratio: Less than 2 Left Vertebral Artery: Antegrade flow. IMPRESSION: 1. Right Internal Carotid Artery: Less than 50% diameter stenosis. 2. Left Internal Carotid Artery: Less than 50% diameter stenosis. Velocity criteria are extrapolated from diameter data as defined by the Society of Radiologists in Ul trasound Consensus Conference, Radiology 2003; 229;340-346. NO STENOSIS (NORMAL) * Plaque = none; ICA PSV < 125 cm/sec; ICA/CCA PSV Ratio < 2.0 <50% STENOSIS * Plaque < 50%; ICA PSV < 125 cm/sec; ICA/CCA PSV Ratio < 2.0 50-69% STENOSIS * Plaque > 50%; ICA PSV = 125-230 cm/sec; ICA/CCA PSV Ratio = 2.0-4.0 >70% BUT <100% STENOSIS * Plaque > 50%; ICA PSV > 230 cm/sec; ICA/CCA PSV Ratio > 4.0 NEAR OCCLUSION * Plaque = visible lumen; ICA PSV = high/low/none; ICA/CCA PSV Ratio = variable TOTAL OCCLUSION * Plaque = no lumen; ICA PSV = none; ICA/CCA PSV Ratio = N/A Signer Name: Vimal Epstein MD Signed: 10/14/2020 8:43 PM Workstation Name: [id number] [facility]
--- NOTE | 2020-10-15 08:42 | Progress Note ---
Assessment and Plan Assessment and plan: (1) CVA (cerebral vascular accident) Current Visit: No Status: Acute Plan to address problem: CVA protocol: CT scan brain, antiplatelet therapy, physical therapy consulted, Occupational Therapy consulted, speech therapy consulted, lipid panel, seizure precautions, neuro check, aspiration precautions, fall protocol, carotid Doppler, echocardiogram. (2) HTN (hypertension) Current Visit: Yes Status: Acute Qualifiers: Hypertension type: essential hypertension Qualified Code(s): I10 - Essential (primary) hypertension Plan to address problem: Monitor blood pressure every shift, continue medical management (3) COPD (chronic obstructive pulmonary disease) Current Visit: Yes Status: Acute Plan to address problem: Supplemental oxygen, pulse oximetry, nebulizer therapy, (4) GERD (gastroesophageal reflux disease) Current Visit: Yes Status: Acute Plan to address problem: PPI therapy, supportive care (5) Nicotine dependence Current Visit: Yes Status: Acute Plan to address problem: Smoking cessation counseling, behavior change counseling, +15 minutes. (6) DVT prophylaxis Current Visit: Yes Status: Acute Plan to address problem: SCD to BLE while in bed, patient is ambulatory (7) Advance care planning Current Visit: Yes Status: Acute Plan to address problem: Disease education conducted, care plan discussed, diagnoses discussed, patient is full code, patient knowledges understanding and agreement with care plan, +30 minutes 10/14/2020 -Patient has right-sided hemiplegia with slurred speech. -I placed a consult for in-house neurology -CTA head and neck, did not show significant stenosis. CT head is normal. MRI is pending. Carotid Doppler and echo pending. PT OT evaluation -Continue inpatient care -Given his right-sided hemiplegia patient qualify for inpatient stay 10/15/2020 -MRI head was done and showed nonhemorrhagic subacute ischemia straddling the left wilson radiata and left centrum semiovale -Patient was evaluated by PT recommend acute rehab -Evaluated by speech therapy and recommend regular thin liquids -Carotid Dopplers less than 50% stenosis -Echo was done and pending reading -Patient was seen by neurology and recommend to continue aspirin, statin and blood pressure below 150/90; blood pressures controlled without medications History Interval history: Patient was seen and evaluated this morning Patient has slurred speech, right-sided hemiplegia Hospitalist Physical - Physical exam Narrative exam: Not in cardiopulmonary distress. The patient appeared well nourished and normally developed. Vital signs as documented. Head exam is unremarkable. No scleral icterus . Neck is without jugular venous distension, thyromegaly, or carotid bruits. Lungs are clear to auscultation. Cardiac exam reveals regular rate and Rhythm. Abdominal exam reveals normal bowel sounds, nontender, no organomegaly. Extremities are nonedematous and both femoral and pedal pulses are normal. [employer] SUPERVISOR: Alert and oriented 3. Right-sided hemiplegia. Slurred speech. - Constitutional Vitals: Temp Pulse Resp BP Pulse Ox 98.1 F 75 18 107/70 96 10/15/20 07:17 10/15/20 07:17 10/15/20 07:17 10/15/20 07:17 10/15/20 07:17 General appearance: Present: mild distress HEART Score - HEART Score Troponin: Troponin T < 0.010 ng/mL (0.00-0.029) 10/13/20 17:11 Results - Labs CBC & Chem 7: 10/13/20 17:11 10/13/20 17:11 Labs: Laboratory Last Values WBC 6.3 K/mm3 (4.5-11.0) 10/13/20 17:11 RBC 4.54 M/mm3 (3.65-5.03) 10/13/20 17:11 Hgb 13.9 gm/dl (11.8-15.2) 10/13/20 17:11 Hct 41.2 % (35.5-45.6) 10/13/20 17:11 MCV 91 fl (84-94) 10/13/20 17:11 MCH 31 pg (28-32) 10/13/20 17:11 MCHC 34 % (32-34) 10/13/20 17:11 RDW 14.7 % (13.2-15.2) 10/13/20 17:11 Plt Count 201 K/mm3 (140-440) 10/13/20 17:11 Lymph % (Auto) 16.4 % (13.4-35.0) 10/13/20 17:11 [place] % (Auto) 8.5 % (0.0-7.3) H 10/13/20 17:11 Eos % (Auto) 1.7 % (0.0-4.3) 10/13/20 17:11 Baso % (Auto) 0.6 % (0.0-1.8) 10/13/20 17:11 Lymph # (Auto) 1.0 K/mm3 (1.2-5.4) L 10/13/20 17:11 [place] # (Auto) 0.5 K/mm3 (0.0-0.8) 10/13/20 17:11 Eos # (Auto) 0.1 K/mm3 (0.0-0.4) 10/13/20 17:11 Baso # (Auto) 0.0 K/mm3 (0.0-0.1) 10/13/20 17:11 Seg Neutrophils % 72.8 % (40.0-70.0) H 10/13/20 17:11 Seg Neutrophils # 4.6 K/mm3 (1.8-7.7) 10/13/20 17:11 PT 13.9 Sec. (12.2-14.9) 10/13/20 17:11 INR 1.08 (0.87-1.13) 10/13/20 17:11 APTT 33.3 Sec. (24.2-36.6) 10/13/20 17:11 Thrombin Time 17.2 Sec. (15.1-19.6) 10/13/20 17:11 Sodium 132 mmol/L (137-145) L 10/13/20 17:11 Potassium 3.6 mmol/L (3.6-5.0) 10/13/20 17:11 Chloride 99.4 mmol/L (98-107) 10/13/20 17:11 Carbon Dioxide 24 mmol/L (22-30) 10/13/20 17:11 Anion Gap 12 mmol/L 10/13/20 17:11 BUN 16 mg/dL (9-20) 10/13/20 17:11 Creatinine 0.9 mg/dL (0.8-1.3) 10/13/20 17:11 Estimated GFR > 60 ml/min 10/13/20 17:11 BUN/Creatinine Ratio 18 % 10/13/20 17:11 Glucose 103 mg/dL (75-100) H 10/13/20 17:11 POC Glucose 67 mg/dL (70-105) L 10/13/20 17:35 Calcium 8.4 mg/dL (8.4-10.2) 10/13/20 17:11 Total Bilirubin 0.20 mg/dL (0.1-1.2) 10/13/20 17:11 AST 12 units/L (5-40) 10/13/20 17:11 ALT 12 units/L (7-56) 10/13/20 17:11 Alkaline Phosphatase 61 units/L (35-129) 10/13/20 17:11 Total Creatine Kinase 68 units/L (55-170) 10/13/20 17:11 CK-MB (CK-2) 3.1 ng/mL (0.0-4.0) 10/13/20 17:11 CK-MB (CK-2) Rel Index 4.5 (0-4) H 10/13/20 17:11 Troponin T < 0.010 ng/mL (0.00-0.029) 10/13/20 17:11 Total Protein 5.5 g/dL (6.3-8.2) L 10/13/20 17:11 Albumin 3.5 g/dL (3.9-5) L 10/13/20 17:11 Albumin/Globulin Ratio 1.8 % 10/13/20 17:11 Triglycerides 78 mg/dL (2-149) 10/14/20 04:15 Cholesterol 149 mg/dL (50-199) 10/14/20 04:15 LDL Cholesterol Direct 95 mg/dL (50-130) 10/14/20 04:15 HDL Cholesterol 52 mg/dL (40-59) 10/14/20 04:15 Cholesterol/HDL Ratio 2.86 % 10/14/20 04:15 [facility]/IV: Voiding Method Urinal Active Medications - Current Medications Current Medications: Generic Name Dose Route Start Last Admin Trade Name Freq PRN Reason Stop Dose Admin Acetaminophen 650 mg 10/13/20 18:01 10/14/20 21:47 Acetaminophen 325 Mg Tab PO 650 mg Q4H PRN Administration Pain, Mild (1-3) Alprazolam 1 mg 10/14/20 10:00 10/14/20 11:21 Alprazolam 1 Mg Tab PO Not Given DAILY CARLI Aspirin 325 mg 10/14/20 10:00 10/14/20 09:32 Aspirin 325 Mg Tab PO 325 mg QDAY CARLI Administration Atorvastatin Calcium 40 mg 10/13/20 22:00 10/14/20 21:47 Atorvastatin 40 Mg Tab PO 40 mg QHS CARLI Administration Bisacodyl 10 mg 10/13/20 18:01 Bisacodyl 10 Mg Rect Supp [place] QDAY PRN Constipation Magnesium Hydroxide 30 ml 10/13/20 18:01 Magnesium Hydroxide (Mom) Oral Liqd Udc PO Q4H PRN Constipation Metoclopramide HCl 10 mg 10/13/20 18:01 Metoclopramide 10 Mg Tab PO Q6H PRN Nausea And Vomiting Ondansetron HCl 4 mg 10/13/20 18:01 Ondansetron 4 Mg/2 Ml Inj IV Q8H PRN Nausea And Vomiting Promethazine HCl 25 mg 10/13/20 18:01 Promethazine 25 Mg Rect Supp [place] Q6H PRN Nausea And Vomiting Risperidone 0.25 mg 10/13/20 22:00 10/14/20 21:47 Risperidone 0.25 Mg Tab PO 0.25 mg BID CARLI Administration Sodium Chloride 10 ml 10/13/20 18:01 10/13/20 23:01 Sodium Chloride 0.9% 10 Ml Flush Syringe IV 10 ml PRN PRN Administration LINE FLUSH Tiotropium [place] 1 puff 10/14/20 10:00 10/14/20 09:36 Tiotropium 18 Mcg Cap Inhalation IH Not Given Q24HR [facility]1983 Tramadol HCl 50 mg 10/13/20 18:21 Tramadol 50 Mg Tab PO Q6H PRN Pain, Moderate (4-6)
[2020-10-15] MEDS: risperiDONE 0.25 MG TAB PO SCH ×2 (09:03→22:20)
[2020-10-15] MEDS: ASPIRIN 325 MG TAB PO SCH (09:03)
--- NOTE | 2020-10-15 10:12 | Electrocardiograph Report ---
[facility] Test Date: 2020-10-13 Test Time: 17:31:47 Pat Name: SRAAH LUQUE Department: Room: A463 1 Gender: M Process Control Board Operator: MINA : 1955 Requested By: TOBIN RAMIREZ Order Number: [id number] Reading MD: Phil Julian Measurements Intervals [place] Rate: 58 P: 86 MI: 135 QRS: -51 QRSD: 101 T: 80 QT: 441 QTc: 434 Interpretive Statements Sinus bradycardia LAD, consider left anterior fascicular block Anterior infarct, age indeterminate No previous ECG available for comparison Electronically Signed On 10-15-2020 10:12:22 EDT by Phil Julian
--- NOTE | 2020-10-15 11:29 | Progress Note ---
Assessment and Plan Assessment and Plan # CVA new onset right side weakness upper and lower with garble speech -On initial evaluation BP#169/94 -Findings from Hx and exam are suggestive of lacunar infarct (Risk factors include Smoking,HTN,HLP) -CVA protocol: - CT scan brain is unremarkable, -ASA 325 mg daily--- change to 81 mg daily. -Lipitor 40 mg daily - physical therapy consulted, -Occupational Therapy consulted,-- pt. is a good rehabilitation candidate. - speech therapy consulted, - lipid panel showed LDL#95, - seizure precautions, - neuro check, -aspiration precautions, -fall protocol, -CTA brain and neck are unremarkable -echocardiogram is remarkable for EF#50-55% -MRI brain is remarkable for left wilson radiata and semiovale lacunar infarct # HTN (hypertension) -Monitor blood pressure every shift, - continue medical management -Allow for permissive HTN<220/110 for 24 hours then control Bp<150/80 # COPD (chronic obstructive pulmonary disease) -Supplemental oxygen, -pulse oximetry, -nebulizer therapy, # GERD (gastroesophageal reflux disease) -PPI therapy, - supportive care # Nicotine dependence -Smoking cessation counseling, -behavior change counseling, +15 minutes. # DVT prophylaxis -SCD to BLE while in bed, -patient is ambulatory # Advance care planning -Disease education conducted, - care plan discussed, -diagnoses discussed, -patient is full code, -patient knowledges understanding and agreement with care plan, +30 minutes PLAN 1- ASA 81 mg daily 2- Lipitor 40 mg daily 3- PT/Rehab/ST evaluation 4- BP<150/80 5- Stop smoking will sign off Subjective Date of service: 10/15/20 Principal diagnosis: CVA with right side weakness Interval history: still with right side weakness swallow is fine, right lower improved Objective - Vital Sign Vital Signs - 12hr 10/15/20 10/15/20 03:47 07:17 Temperature 97.5 F L 98.1 F Pulse Rate 67 75 Respiratory 18 18 Rate Blood Pressure 106/71 107/70 O2 Sat by Pulse 95 96 Oximetry - General Apperance Constitutional: comfortable - EENT EENT: PERRL - Respiratory Respiratory: chest non-tender, lungs clear, rhonchi - Cardiovascular Cardiovascular: regular rate, normal S1, normal S2 Extremities: no peripheral edema bilat - Gastrointestinal Gastrointestinal: normoactive bowel sounds - Integumentary Integumentary: normal - Neurologic Cranial nerve examination: PERRL, EOMI, other (right facial droop no visual deficit. ) Detailed motor examination: other (right upper is 1/5 right lower improved to 4- /5 ) Motor examination - right side: 1/5: biceps (not done.) - Laboratory Findings CBC and BMP: 10/13/20 17:11 10/13/20 17:11 Abnormal Lab Findings: Abnormal Labs 10/13/20 10/13/20 10/13/20 17:11 17:11 17:35 [place] % (Auto) 8.5 H Lymph # (Auto) 1.0 L Seg Neutrophils % 72.8 H Sodium 132 L Glucose 103 H POC Glucose 67 L CK-MB (CK-2) Rel Index 4.5 H Total Protein 5.5 L Albumin 3.5 L
[2020-10-15] MEDS ORDERED: ASPIRIN 325 MG TAB PO SCH (11:30)
[2020-10-15] MEDS: TIOTROPIUM 18 MCG CAP INHALATION IH SCH (16:32)
[2020-10-15] MEDS: ALPRAZolam 1 MG TAB PO SCH (22:20)
--- NOTE | 2020-10-16 07:54 | Progress Note ---
Assessment and Plan Assessment and plan: (1) CVA (cerebral vascular accident) Current Visit: No Status: Acute Plan to address problem: CVA protocol: CT scan brain, antiplatelet therapy, physical therapy consulted, Occupational Therapy consulted, speech therapy consulted, lipid panel, seizure precautions, neuro check, aspiration precautions, fall protocol, carotid Doppler, echocardiogram. (2) HTN (hypertension) Current Visit: Yes Status: Acute Qualifiers: Hypertension type: essential hypertension Qualified Code(s): I10 - Essential (primary) hypertension Plan to address problem: Monitor blood pressure every shift, continue medical management (3) COPD (chronic obstructive pulmonary disease) Current Visit: Yes Status: Acute Plan to address problem: Supplemental oxygen, pulse oximetry, nebulizer therapy, (4) GERD (gastroesophageal reflux disease) Current Visit: Yes Status: Acute Plan to address problem: PPI therapy, supportive care (5) Nicotine dependence Current Visit: Yes Status: Acute Plan to address problem: Smoking cessation counseling, behavior change counseling, +15 minutes. (6) DVT prophylaxis Current Visit: Yes Status: Acute Plan to address problem: SCD to BLE while in bed, patient is ambulatory (7) Advance care planning Current Visit: Yes Status: Acute Plan to address problem: Disease education conducted, care plan discussed, diagnoses discussed, patient is full code, patient knowledges understanding and agreement with care plan, +30 minutes 10/14/2020 -Patient has right-sided hemiplegia with slurred speech. -I placed a consult for in-house neurology -CTA head and neck, did not show significant stenosis. CT head is normal. MRI is pending. Carotid Doppler and echo pending. PT OT evaluation -Continue inpatient care -Given his right-sided hemiplegia patient qualify for inpatient stay 10/15/2020 -MRI head was done and showed nonhemorrhagic subacute ischemia straddling the left wilson radiata and left centrum semiovale -Patient was evaluated by PT recommend acute rehab -Evaluated by speech therapy and recommend regular thin liquids -Carotid Dopplers less than 50% stenosis -Echo was done and pending reading -Patient was seen by neurology and recommend to continue aspirin, statin and blood pressure below 150/90; blood pressures controlled without medications 10/16/2020 -Patient is pending rehab placement. Some improvement in his speech and right lower extremity weakness. History Interval history: Patient was seen and evaluated this morning Patient has slurred speech, right-sided hemiparesis Patient has some improvement in his speech and right lower extremity weakness Hospitalist Physical - Physical exam Narrative exam: Not in cardiopulmonary distress. The patient appeared well nourished and normally developed. Vital signs as documented. Head exam is unremarkable. No scleral icterus . Neck is without jugular venous distension, thyromegaly, or carotid bruits. Lungs are clear to auscultation. Cardiac exam reveals regular rate and Rhythm. Abdominal exam reveals normal bowel sounds, nontender, no organomegaly. Extremities are nonedematous and both femoral and pedal pulses are normal. [employer] FARM MANAGER: Alert and oriented 3. Right-sided hemiparesis. Slurred speech. - Constitutional Vitals: Temp Pulse Resp BP Pulse Ox 98.0 F 82 19 116/72 96 10/16/20 04:14 10/16/20 04:14 10/16/20 04:14 10/16/20 04:14 10/16/20 04:14 General appearance: Present: mild distress HEART Score - HEART Score Troponin: Troponin T < 0.010 ng/mL (0.00-0.029) 10/13/20 17:11 Results - Labs CBC & Chem 7: 10/13/20 17:11 10/13/20 17:11 Labs: Laboratory Last Values WBC 6.3 K/mm3 (4.5-11.0) 10/13/20 17:11 RBC 4.54 M/mm3 (3.65-5.03) 10/13/20 17:11 Hgb 13.9 gm/dl (11.8-15.2) 10/13/20 17:11 Hct 41.2 % (35.5-45.6) 10/13/20 17:11 MCV 91 fl (84-94) 10/13/20 17:11 MCH 31 pg (28-32) 10/13/20 17:11 MCHC 34 % (32-34) 10/13/20 17:11 RDW 14.7 % (13.2-15.2) 10/13/20 17:11 Plt Count 201 K/mm3 (140-440) 10/13/20 17:11 Lymph % (Auto) 16.4 % (13.4-35.0) 10/13/20 17:11 [place] % (Auto) 8.5 % (0.0-7.3) H 10/13/20 17:11 Eos % (Auto) 1.7 % (0.0-4.3) 10/13/20 17:11 Baso % (Auto) 0.6 % (0.0-1.8) 10/13/20 17:11 Lymph # (Auto) 1.0 K/mm3 (1.2-5.4) L 10/13/20 17:11 [place] # (Auto) 0.5 K/mm3 (0.0-0.8) 10/13/20 17:11 Eos # (Auto) 0.1 K/mm3 (0.0-0.4) 10/13/20 17:11 Baso # (Auto) 0.0 K/mm3 (0.0-0.1) 10/13/20 17:11 Seg Neutrophils % 72.8 % (40.0-70.0) H 10/13/20 17:11 Seg Neutrophils # 4.6 K/mm3 (1.8-7.7) 10/13/20 17:11 PT 13.9 Sec. (12.2-14.9) 10/13/20 17:11 INR 1.08 (0.87-1.13) 10/13/20 17:11 APTT 33.3 Sec. (24.2-36.6) 10/13/20 17:11 Thrombin Time 17.2 Sec. (15.1-19.6) 10/13/20 17:11 Sodium 132 mmol/L (137-145) L 10/13/20 17:11 Potassium 3.6 mmol/L (3.6-5.0) 10/13/20 17:11 Chloride 99.4 mmol/L (98-107) 10/13/20 17:11 Carbon Dioxide 24 mmol/L (22-30) 10/13/20 17:11 Anion Gap 12 mmol/L 10/13/20 17:11 BUN 16 mg/dL (9-20) 10/13/20 17:11 Creatinine 0.9 mg/dL (0.8-1.3) 10/13/20 17:11 Estimated GFR > 60 ml/min 10/13/20 17:11 BUN/Creatinine Ratio 18 % 10/13/20 17:11 Glucose 103 mg/dL (75-100) H 10/13/20 17:11 POC Glucose 67 mg/dL (70-105) L 10/13/20 17:35 Calcium 8.4 mg/dL (8.4-10.2) 10/13/20 17:11 Total Bilirubin 0.20 mg/dL (0.1-1.2) 10/13/20 17:11 AST 12 units/L (5-40) 10/13/20 17:11 ALT 12 units/L (7-56) 10/13/20 17:11 Alkaline Phosphatase 61 units/L (35-129) 10/13/20 17:11 Total Creatine Kinase 68 units/L (55-170) 10/13/20 17:11 CK-MB (CK-2) 3.1 ng/mL (0.0-4.0) 10/13/20 17:11 CK-MB (CK-2) Rel Index 4.5 (0-4) H 10/13/20 17:11 Troponin T < 0.010 ng/mL (0.00-0.029) 10/13/20 17:11 Total Protein 5.5 g/dL (6.3-8.2) L 10/13/20 17:11 Albumin 3.5 g/dL (3.9-5) L 10/13/20 17:11 Albumin/Globulin Ratio 1.8 % 10/13/20 17:11 Triglycerides 78 mg/dL (2-149) 10/14/20 04:15 Cholesterol 149 mg/dL (50-199) 10/14/20 04:15 LDL Cholesterol Direct 95 mg/dL (50-130) 10/14/20 04:15 HDL Cholesterol 52 mg/dL (40-59) 10/14/20 04:15 Cholesterol/HDL Ratio 2.86 % 10/14/20 04:15 Coronavirus (PCR) Negative (Negative) 10/15/20 Unknown [facility]/IV: Voiding Method Urinal Active Medications - Current Medications Current Medications: Generic Name Dose Route Start Last Admin Trade Name Freq PRN Reason Stop Dose Admin Acetaminophen 650 mg 10/13/20 18:01 10/14/20 21:47 Acetaminophen 325 Mg Tab PO 650 mg Q4H PRN Administration Pain, Mild (1-3) Alprazolam 1 mg 10/14/20 10:00 10/15/20 22:20 Alprazolam 1 Mg Tab PO 1 mg DAILY CARLI Administration Aspirin 81 mg 10/16/20 10:00 Aspirin 81 Mg Tab Chew PO QDAY [facility] Atorvastatin Calcium 40 mg 10/13/20 22:00 10/15/20 22:20 Atorvastatin 40 Mg Tab PO 40 mg QHS CARLI Administration Bisacodyl 10 mg 10/13/20 18:01 Bisacodyl 10 Mg Rect Supp OR QDAY PRN Constipation Magnesium Hydroxide 30 ml 10/13/20 18:01 Magnesium Hydroxide (Mom) Oral Liqd Udc PO Q4H PRN Constipation Metoclopramide HCl 10 mg 10/13/20 18:01 Metoclopramide 10 Mg Tab PO Q6H PRN Nausea And Vomiting Ondansetron HCl 4 mg 10/13/20 18:01 Ondansetron 4 Mg/2 Ml Inj IV Q8H PRN Nausea And Vomiting Promethazine HCl 25 mg 10/13/20 18:01 Promethazine 25 Mg Rect Supp OR Q6H PRN Nausea And Vomiting Risperidone 0.25 mg 10/13/20 22:00 10/15/20 22:20 Risperidone 0.25 Mg Tab PO 0.25 mg BID [facility] Administration Sodium Chloride 10 ml 10/13/20 18:01 10/13/20 23:01 Sodium Chloride 0.9% 10 Ml Flush Syringe IV 10 ml PRN PRN Administration LINE FLUSH Tiotropium [place] 1 puff 10/14/20 10:00 10/15/20 16:32 Tiotropium 18 Mcg Cap Inhalation IH Not Given Q24HR [facility] Tramadol HCl 50 mg 10/13/20 18:21 Tramadol 50 Mg Tab PO Q6H PRN Pain, Moderate (4-6)
[2020-10-16] MEDS: risperiDONE 0.25 MG TAB PO SCH (09:29)
[2020-10-16] MEDS: ALPRAZolam 1 MG TAB PO SCH (09:30)
[2020-10-16] MEDS ORDERED: ASPIRIN 81 MG TAB CHEW PO SCH (10:00)
[2020-10-16 12:10] VITALS: BP 131/84
[2020-10-16] MEDS: TIOTROPIUM 18 MCG CAP INHALATION IH SCH (12:22)
--- NOTE | 2020-10-16 14:24 | Discharge Summary ---
Providers - Providers Date of Admission: 10/14/20 09:47 Date of discharge: 10/16/20 Attending physician: JOSE TORRES MD 10/13/20 18:01 Occupational Therapy Evaluate and Treat [CONS] Routine Comment: Reason For Exam: Neuro deficits Physical Therapy Evaluation and Treat [CONS] Routine Comment: Reason For Exam: Neuro deficits 10/14/20 07:29 Speech Therapy Evaluation and Treat [CONS] Stat Reason For Exam: swallow evaluation 10/14/20 09:47 Consult to Physician [CONS] Routine Comment: Consulting Provider: JING MEYER Physician Instructions: Reason For Exam: CVA, right-sided hemiplegia Primary care physician: MEDICAL RECORD LIBRARIAN Hospitalization Reason for admission: CVA Condition: Stable Pertinent studies: MRI head Hospital course: History of present illness: 65 YO Male eith COPD, Mesothelioma, GERD, OA, Nicotine Dependence presents to ED for evaluation. Pt reports "I feel weak on my right side". Pt states that he experienced acute onset of right-sided weakness which was discovered shortly after awakening from sleep this a.m. Patient was in his usual state of health at bedtime which was around 2100 hrs. EMS was notified and upon arrival the patient was found to be in distress with a neurologic deficit. A code stroke was called and the patient was transported to [facility] for further care and evaluation of the aforementioned symptoms. The patient was seen and evaluated in the emergency department. All lab and imaging studies reviewed. Patient was found to have a neurologic deficit which consisted of slurred speech and right arm and leg weakness. The aforementioned symptoms are consistent with CVA. The patient was initiated on CVA protocol and placed in observation status and admitted to telemetry. Patient denies fever, chills, chest pain, palpitation, productive cough, skin rash, recent ill contacts, or known exposure to COVID-19. No prior admission for review. All medication listed at time of admission has been reconciled. Advanced care planning conducted in ED. Teleneurology consulted in ED. Hospital course (1) CVA (cerebral vascular accident) Current Visit: No Status: Acute Plan to address problem: CVA protocol: CT scan brain, antiplatelet therapy, physical therapy consulted, Occupational Therapy consulted, speech therapy consulted, lipid panel, seizure precautions, neuro check, aspiration precautions, fall protocol, carotid Doppler, echocardiogram. (2) HTN (hypertension) Current Visit: Yes Status: Acute Qualifiers: Hypertension type: essential hypertension Qualified Code(s): I10 - Essential (primary) hypertension Plan to address problem: Monitor blood pressure every shift, continue medical management (3) COPD (chronic obstructive pulmonary disease) Current Visit: Yes Status: Acute Plan to address problem: Supplemental oxygen, pulse oximetry, nebulizer therapy, (4) GERD (gastroesophageal reflux disease) Current Visit: Yes Status: Acute Plan to address problem: PPI therapy, supportive care (5) Nicotine dependence Current Visit: Yes Status: Acute Plan to address problem: Smoking cessation counseling, behavior change counseling, +15 minutes. (6) DVT prophylaxis Current Visit: Yes Status: Acute Plan to address problem: SCD to BLE while in bed, patient is ambulatory (7) Advance care planning Current Visit: Yes Status: Acute Plan to address problem: Disease education conducted, care plan discussed, diagnoses discussed, patient is full code, patient knowledges understanding and agreement with care plan, +30 minutes 10/14/2020 -Patient has right-sided hemiplegia with slurred speech. -I placed a consult for in-house neurology -CTA head and neck, did not show significant stenosis. CT head is normal. MRI is pending. Carotid Doppler and echo pending. PT OT evaluation -Continue inpatient care -Given his right-sided hemiplegia patient qualify for inpatient stay 10/15/2020 -MRI head was done and showed nonhemorrhagic subacute ischemia straddling the left wilson radiata and left centrum semiovale -Patient was evaluated by PT recommend acute rehab -Evaluated by speech therapy and recommend regular thin liquids -Carotid Dopplers less than 50% stenosis -Echo was done and pending reading -Patient was seen by neurology and recommend to continue aspirin, statin and blood pressure below 150/90; blood pressures controlled without medications 10/16/2020 -Patient is pending rehab placement. Some improvement in his speech and right lower extremity weakness. Patient was accepted by acute rehab facility and discharged. Patient is on reg ular consistency diet. Disposition: [id number] Final Discharge Diagnosis (Prints w/discharge instructions): CVA. Hyperlipidemia. Nicotine use Time spent for discharge: 35 minutes - Discharge Diagnoses (1) CVA (cerebrovascular accident) Status: Acute (2) Hyperlipidemia Status: Acute (3) Nicotine dependence Status: Acute Core Measure Documentation - Palliative Care Palliative Care/ Comfort Measures: Not Applicable - Core Measures Any of the following diagnoses?: stroke - Stroke Discharge Requirements Statin for LDL = or >70 mg/dl on DC: Yes Anticoag for atrial fib/atrial flutter: Not Applicable Antithrombotic for ischemic stroke: Yes Exam - Physical Exam Narrative exam: Not in cardiopulmonary distress. The patient appeared well nourished and normally developed. Vital signs as documented. Head exam is unremarkable. No scleral icterus . Neck is without jugular venous distension, thyromegaly, or carotid bruits. Lungs are clear to auscultation. Cardiac exam reveals regular rate and Rhythm. Abdominal exam reveals normal bowel sounds, nontender, no organomegaly. Extremities are nonedematous and both femoral and pedal pulses are normal. INCIDENT RESPONSE COORDINATOR: Alert and oriented 3. Right-sided hemiparesis. Slurred speech. - Constitutional Vitals: Temp Pulse Resp BP Pulse Ox 98.0 F 92 H 18 131/84 96 10/16/20 11:22 10/16/20 12:35 10/16/20 12:35 10/16/20 11:22 10/16/20 11:22 Plan Activity: advance as tolerated Weight Bearing Status: Weight Bear as Tolerated Diet: low cholesterol Follow up with: PRIMARY MD SABRA [Primary Care Provider] - 7 Days JING MEYER MD [Staff Physician] - 14 Days Prescriptions: AtorvaSTATin [Lipitor] 40 mg PO QHS #30 tablet Aspirin [Aspirin BABY CHEW TAB] 81 mg PO QDAY #30 tab.chew ALPRAZolam [Xanax TAB] 1 mg PO DAILY #14
== END 2020-10-16 18:00 | DRG 65 ==
LOC: ED 16:50 → 4A 18:01 → OBSVTOIN 10-14 09:47
PROVIDERS: ADMIT Internal Medicine; ATTEND Internal Medicine
DX: I63.9 Cerebral infarction, unspecified (principal); G81.91 Hemiplegia, unspecified affecting right dominant side; K21.9 Gastro-esophageal reflux disease without esophagitis; Z20.822 Contact with and (suspected) exposure to COVID-19; R29.706 NIHSS score 6; M19.90 Unspecified osteoarthritis, unspecified site; E78.5 Hyperlipidemia, unspecified; J44.9 Chronic obstructive pulmonary disease, unspecified; I10 Essential (primary) hypertension; F17.200 Nicotine dependence, unspecified, uncomplicated; Z79.899 Other long term (current) drug therapy; Z71.6 Tobacco abuse counseling
CPT/HCPCS: 36415; 70450; 70496; 70498; 70551; 80053; 80061; 82550; 82553; 82962; 84484; 85025; 85610; 85670; 85730; 93005; 93306; 93880; G0378; A9270-GY; Q9967; U0003